=== PATIENT | male | born 1975 | race Hispanic/Latino ===

== ENCOUNTER 2022-09-10 09:58 | Outpatient (CLI) | payer OTHER, MEDICARE | END 2022-09-10 09:59 | disposition home or self-care (01) | LOC: CSHWCC 09:58 | PROVIDERS: ATTEND Nurse Practitioner Family | DX: T81.89XD Other complications of procedures, not elsewhere classified, subsequent encounter (principal) | CPT/HCPCS: 87070; 87205 ==

== ENCOUNTER 2022-09-12 09:21 | Outpatient (CLI) | payer OTHER, MEDICARE | END 2022-09-12 09:22 | disposition home or self-care (01) | LOC: CSHWCC 09:21 | PROVIDERS: ATTEND Nurse Practitioner Family | DX: T81.89XD Other complications of procedures, not elsewhere classified, subsequent encounter (principal); Z89.421 Acquired absence of other right toe(s) | CPT/HCPCS: 29581; 97605 ==

== ENCOUNTER 2022-09-16 13:02 | Outpatient (CLI) | payer OTHER, MEDICARE | END 2022-09-16 13:03 | disposition home or self-care (01) | LOC: CSHWCC 13:02 | PROVIDERS: ATTEND Nurse Practitioner Family | DX: T81.89XD Other complications of procedures, not elsewhere classified, subsequent encounter (principal); R60.0 Localized edema; Z89.421 Acquired absence of other right toe(s) | CPT/HCPCS: 29581; 97605 ==

== ENCOUNTER 2022-09-19 08:06 | Outpatient (CLI) | payer OTHER, MEDICARE | END 2022-09-19 08:07 | disposition home or self-care (01) | LOC: CSHWCC 08:06 | PROVIDERS: ATTEND Nurse Practitioner Family | DX: T81.89XD Other complications of procedures, not elsewhere classified, subsequent encounter (principal); R60.0 Localized edema | CPT/HCPCS: 29581; 97605 ==

== ENCOUNTER 2022-09-23 13:21 | Outpatient (CLI) | payer OTHER, MEDICARE | END 2022-09-23 13:22 | disposition home or self-care (01) | LOC: CSHWCC 13:21 | PROVIDERS: ATTEND Nurse Practitioner Family | DX: T81.89XD Other complications of procedures, not elsewhere classified, subsequent encounter (principal); R60.0 Localized edema; Z89.421 Acquired absence of other right toe(s) ==

== ENCOUNTER 2022-09-26 08:10 | Outpatient (CLI) | payer OTHER, MEDICARE | END 2022-09-26 08:11 | disposition home or self-care (01) | LOC: CSHWCC 08:10 | PROVIDERS: ATTEND Nurse Practitioner Family | DX: T81.89XA Other complications of procedures, not elsewhere classified, initial encounter (principal); R60.0 Localized edema | CPT/HCPCS: 29581; 97605 ==

== ENCOUNTER 2022-09-30 08:10 | Outpatient (CLI) | payer MEDICARE | END 2022-09-30 08:11 | disposition home or self-care (01) | LOC: CSHWCC 08:10 | PROVIDERS: ATTEND Nurse Practitioner Family | DX: T81.89XD Other complications of procedures, not elsewhere classified, subsequent encounter (principal); R60.0 Localized edema; Z89.431 Acquired absence of right foot | CPT/HCPCS: 29581; 97605 ==

== ENCOUNTER 2024-03-30 12:21 | Emergency (ER) | payer MEDICARE, OTHER ==
[2024-03-30 13:49] LABS: #Basophils 0.07 10x3/uL (0.0-0.2); #Eosinophils 0.84 10x3/uL (0.0-0.5); #Monocytes 0.74 10x3/uL (0.0-1.1); #Neutrophils 5.58 10x3/uL (1.5-8.4); %Basophils 0.9 % (0.0-2.0); %Eosinophils 10.2 % (0.0-6.0); %Lymphocytes 11.5 % (18.0-47.0); Hematocrit 36.4 % (38.8-50.0); Hemoglobin 12.4 g/dL (13.5-17.5); Mean Corpuscular HGB CONC 34.1 g/dL (32.0-36.0); Mean Corpuscular Hemoglobin 32.1 pg (27.0-33.0); Mean Corpuscular Volume 94.3 fL (81.2-95.1); Platelet Count 183 10x3/uL (150-450); RBC Distribution Width 12.9 % (11.5-14.5); Red Blood Cell (RBC) Count 3.86 10x6/uL (4.32-5.72); White Blood Cell (WBC) Count 8.2 10x3/uL (3.5-10.5)
[2024-03-30 14:07] LABS: ALT (SGPT) 26 U/L (8-55); AST (SGOT) 19 U/L (5-34); Albumin 3.5 g/dL (3.5-5.0); Alkaline Phosphatase 124 U/L (40-110); Anion Gap 21 mmol/L (10-20); BUN (Urea Nitrogen) 88 mg/dL (8.9-20.6); Calc. Creatinine Clearance 0 mL/min (70-130); Calcium 7.4 mg/dL (7.8-10.44); Carbon Dioxide 20 mmol/L (22-29); Chloride 98 mmol/L (98-107); Estimated GFR 4; Globulin 3.4 g/dL (2.4-3.5); Glucose 261 mg/dL (70-105); Potassium 5.1 mmol/L (3.5-5.1); Protein, Total 6.9 g/dL (6.0-8.3); Sodium 134 mmol/L (136-145)
== END 2024-03-30 16:30 | disposition home or self-care (01) ==
LOC: CSHERS 12:21
DX: I82.621 Acute embolism and thrombosis of deep veins of right upper extremity (principal); I12.0 Hypertensive chronic kidney disease with stage 5 chronic kidney disease or end stage renal disease; E11.22 Type 2 diabetes mellitus with diabetic chronic kidney disease; N18.6 End stage renal disease; Z99.2 Dependence on renal dialysis; Z79.84 Long term (current) use of oral hypoglycemic drugs; Z79.899 Other long term (current) drug therapy
CPT/HCPCS: 80053; 85025; 93005